=== PATIENT | female | born 1985 | race Caucasian/White ===

== ENCOUNTER 2018-03-24 09:00 | Emergency (ER) | payer OTHER ==
[2018-03-24] MEDS ORDERED: Ketorolac Tromethamine 30 MG/ML VIAL ONE (09:28)
== END 2018-03-24 09:57 | disposition home or self-care (01) ==
LOC: SCSER 09:00
DX: M77.11 Lateral epicondylitis, right elbow (principal); I10 Essential (primary) hypertension; E11.9 Type 2 diabetes mellitus without complications; E03.9 Hypothyroidism, unspecified; Z79.899 Other long term (current) drug therapy; Z79.84 Long term (current) use of oral hypoglycemic drugs
CPT/HCPCS: 96372; J1885

== ENCOUNTER 2018-05-07 17:57 | Emergency (ER) | payer OTHER ==
--- NOTE | 2018-05-07 21:16 | RAD ---
RIGHT ELBOW: 05/07/18 Four views. HISTORY: Elbow pain. Denies injury. No evidence of fracture. Mild spurring from the coronoid. No evidence of joint effusion. IMPRESSION: No acute abnormality. Question small osteophyte from the coronoid. POS: DINAW
== END 2018-05-07 19:41 | disposition home or self-care (01) ==
LOC: ERS 17:57
DX: M77.11 Lateral epicondylitis, right elbow (principal); I10 Essential (primary) hypertension; E11.9 Type 2 diabetes mellitus without complications; E03.9 Hypothyroidism, unspecified; Z79.899 Other long term (current) drug therapy

== ENCOUNTER 2018-06-01 06:13 | Emergency (ER) | payer OTHER ==
[2018-06-01] MEDS ORDERED: Ketorolac Tromethamine 30 MG/ML VIAL ONE (06:59)
--- NOTE | 2018-06-01 10:06 | RAD ---
LEFT FOOT 3 VIEWS: HISTORY: Foot pain that started yesterday. FINDINGS: Calcaneal spurs are noted with the more prominent spur at the Achilles tendon insertion. There are o signs of fracture or dislocation. IMPRESSION: No acute findings. POS: ULISSES
== END 2018-06-01 09:14 | disposition home or self-care (01) ==
LOC: ERS 06:13
DX: M79.672 Pain in left foot (principal); I10 Essential (primary) hypertension; E11.9 Type 2 diabetes mellitus without complications; E03.9 Hypothyroidism, unspecified; Z79.84 Long term (current) use of oral hypoglycemic drugs; Z79.899 Other long term (current) drug therapy
CPT/HCPCS: 96372; J1885

== ENCOUNTER 2018-07-03 09:44 | Outpatient (CLI) | payer OTHER ==
--- NOTE | 2018-07-03 11:36 | ULT ---
LIMITED RIGHT BREAST ULTRASOUND: Date: 07/03/18 PROVIDED CLINICAL HISTORY: Right breast palpable abnormality. FINDINGS: Limited sonographic interrogation was performed of the right breast in the region of palpable concern . The sonographic appearance of the breast tissue in this region is normal. IMPRESSION: BIRADS Category 1 - Negative. Negative imaging findings should not preclude further evaluation of a c linically suspicious area. Patient referred back to her clinician. POS: OFF
== END 2018-07-03 09:45 | disposition home or self-care (01) ==
LOC: BICMAMMO 09:44
PROVIDERS: ATTEND Physician Assistant
DX: N63.10 Unspecified lump in the right breast, unspecified quadrant (principal)
CPT/HCPCS: 77066; G0279

== ENCOUNTER 2018-10-03 09:32 | Emergency (ER) | payer OTHER, SELFPAY ==
[2018-10-03] MEDS ORDERED: Fluorescein Opthalmic Strip ONE (10:02)
[2018-10-03] MEDS ORDERED: Adacel (T-DAP) 0.5 ML SYRINGE ONE (10:07)
== END 2018-10-03 10:24 | disposition home or self-care (01) ==
LOC: ERS 09:32
DX: H18.821 Corneal disorder due to contact lens, right eye (principal); I10 Essential (primary) hypertension; E11.9 Type 2 diabetes mellitus without complications; E03.9 Hypothyroidism, unspecified; Z79.84 Long term (current) use of oral hypoglycemic drugs
CPT/HCPCS: 90471; 90715

== ENCOUNTER 2018-12-28 11:11 | Emergency (ER) | payer SELFPAY ==
[2018-12-28 11:48] LABS: #Eosinphils 0.1 thou/uL (0.0-0.7); #Lymphocytes 2.5 thou/uL (1.20-3.40); #Monocytes 0.5 thou/uL (0.11-0.59); #Neutrophils 5.1 thou/uL (1.40-6.50); %Basophils 0.4 % (0.0-1.0); %Eosinophils 1.3 % (0.0-10.0); %Lymphocytes 29.7 % (21.0-51.0); %Monocytes 6.4 % (0.0-10.0); %Neutrophils 62.1 % (42.0-75.0); Hemoglobin 10.9 g/dL (12.0-16.0); Mean Corpuscular HGB CONC 34.2 g/dL (32.0-36.0); Mean Corpuscular Hemoglobin 27.7 pg (27.0-31.0); Mean Corpuscular Volume 80.9 fL (78.0-98.0); Mean Platelet Volume 6.8 fL (7.4-10.4); Platelet Count 398 thou/uL (130-400); RBC Distribution Width 15.1 % (11.5-14.5); Red Blood Cell (RBC) Count 3.93 mill/uL (4.20-5.40); White Blood Cell (WBC) Count 8.3 thou/uL (4.8-10.8)
[2018-12-28 12:23] LABS: Bilirubin Negative (Negative); Blood, Urine Negative (Negative); Clarity CLEAR (Clear); Glucose, Urine (Dipstick) Negative (Negative); Leukocyte Negative (Negative); Nitrite Negative (Negative); Protein, Urine (Dipstick) Negative (Neg-Trace); Specific Gravity, Urine 1.014 (1.002-1.036); Urobilinogen 0.2 mg/dL (0.2-1.0); pH, Urine 6.5 (5.0-9.0)
--- NOTE | 2018-12-28 13:09 | ULT ---
PELVIC ULTRASOUND: HISTORY: Pelvic pain. COMPARISON: None. TECHNIQUE: Transabdominal imaging of the pelvis is performed. FINDINGS: Limited evaluation due to body habitus. Neither ovary is appreciated. No obvious masses or fluid in the left or right adnexa. Uterus is identified measuring 8.4 x 12.4 x 9.3 cm. Within the endometrium, there is a gestational s ac, yolk sac, and pole. Pope[place]-rump length is 2 cm, compatible with a gestational age of 8 week s 4 days. No evidence of subchorionic hemorrhage. There are heart tones with a rate of 169 b.p.m. IMPRESSION: Single intrauterine gestation with heart tones. Gestational age by crown-rump length is 8 week s 4 days. POS: OFF
== END 2018-12-28 13:39 | disposition home or self-care (01) ==
LOC: ERS 11:11
DX: O20.0 Threatened abortion (principal); O99.281 Endocrine, nutritional and metabolic diseases complicating pregnancy, first trimester; E03.9 Hypothyroidism, unspecified; Z79.899 Other long term (current) drug therapy; Z79.84 Long term (current) use of oral hypoglycemic drugs; Z3A.09 9 weeks gestation of pregnancy
CPT/HCPCS: 36415; 76856; 81003; 84702; 85025; 86900; 86901

== ENCOUNTER 2019-05-02 20:11 | Emergency (ER) | payer MEDICAID ==
--- NOTE | 2019-05-02 22:50 | RAD ---
GREAT TOE RIGHT FOOT: 05/02/19 Three views. HISTORY: Pain. FINDINGS/IMPRESSION: No fracture or dislocation. On the lateral view, there is a small calcific density seen dorsally at t he IP joint of the great toe. Considerations include foreign body, prior avulsion or soft tissue calc ification. POS: OFF
== END 2019-05-02 23:55 | disposition home or self-care (01) ==
LOC: ERS 20:11
DX: O9A.212 Injury, poisoning and certain other consequences of external causes complicating pregnancy, second trimester (principal); S90.111A Contusion of right great toe without damage to nail, initial encounter; O10.912 Unspecified pre-existing hypertension complicating pregnancy, second trimester; O24.112 Pre-existing type 2 diabetes mellitus, in pregnancy, second trimester; E11.9 Type 2 diabetes mellitus without complications; O99.282 Endocrine, nutritional and metabolic diseases complicating pregnancy, second trimester; E03.9 Hypothyroidism, unspecified; Z79.84 Long term (current) use of oral hypoglycemic drugs; Z79.899 Other long term (current) drug therapy; Z3A.27 27 weeks gestation of pregnancy

== ENCOUNTER 2021-05-15 12:09 | Outpatient (CLI) | payer BC | END 2021-05-15 12:10 | disposition home or self-care (01) | LOC: BICRAD 12:09 | PROVIDERS: ATTEND Nurse Practitioner Family | DX: S46.911A Strain of unspecified muscle, fascia and tendon at shoulder and upper arm level, right arm, initial encounter (principal) ==